=== PATIENT | female | born 1985 | race Caucasian/White ===

== ENCOUNTER 2021-03-22 08:52 | Emergency (ER) | payer BC ==
[2021-03-22] MEDS ORDERED: Amoxicillin/Clavulanate K 875-125 MG Tab PO ONE (09:09)
[2021-03-22] MEDS ORDERED: Diphtheria,Pertussis(Acell),Tetanus Vaccine 0.5 ML Syringe IM ONE (09:09)
--- NOTE | 2021-03-22 09:28 | EDM.PDOC ---
ED HPI GENERAL MEDICAL PROBLEM - General Chief Complaint: Bite:Animal, Insect Stated Complaint: DOG BITE Time Seen by Provider: 03/22/21 08:56 - History of Present Illness INITIAL COMMENTS - FREE TEXT/NARRATIVE: CHIEF COMPLAINT(S): Dog bite HISTORY OF PRESENT ILLNESS: This is a 34-year-old woman without any significant past medical history who comes to the emergency department with a chief complaint of dog bite. The patient states that prior to arrival her dogs were fighting at home and she got in between them and her dog accidentally bit her left hand. She states that she has not had a tetanus in the last 5 years. She states that she is experiencing some mild pain to her left hand where the puncture wounds are but denies any bleeding or any other injury. She describes her pain as achy rated 2-3 out of 10. She denies any numbness, tingling, or weakness. She states that her pets are up-to-date on their vaccinations. She denies any other symptoms. REVIEW OF SYSTEMS: Cardiovascular: Denies chest pain Respiratory: Denies shortness of breath Skin: Positive for dog bite to left hand MSK: Denies joint pain Neurological: Denies numbness, tingling, weakness PAST MEDICAL HISTORY: As per history of present illness and as reviewed below otherwise noncontributory. SURGICAL HISTORY: As per history of present illness and as reviewed below otherwise noncontributory. SOCIAL HISTORY: As per history of present illness and as reviewed below otherwise noncontributory. FAMILY HISTORY: As per history of present illness and as reviewed below otherwise noncontributory. EXAMINATION OF ORGAN SYSTEMS/BODY AREAS: Constitutional: Blood pressure is 105/71, heart rate 89, respiratory rate 18 with an oxygen saturation 98% on room air. Temperature 36.4 General: Overall well-appearing woman who is in no acute distress Psychiatric: Appropriate mood and affect. Eyes: No scleral icterus or conjunctival erythema Cardiovascular: Regular, rate, and rhythm. No gallops, murmurs, or rubs. Bilateral upper extremity pulses symmetric and intact. Respiratory: Lungs clear to auscultation bilaterally. No wheezes, rales, or rhonchi. Musculoskeletal: The patient has full range of motion of all of her digits on her left hand, full range of motion at the left wrist. No deformity noted. Skin: There is a puncture wound on the dorsal aspect of the left hand and the palmar aspect of the left hand without any active bleeding, tendon exposure or muscle exposure. Neurological: Alert, GCS 15 distal sensation is intact. Strength 5 out of 5 in bilateral upper extremities MEDICAL DECISION MAKING AND COURSE IN THE ED WITH INTERPRETATION/REVIEW OF DIAGNOSTIC STUDIES: This is a 35-year-old woman without any significant past medical history who comes to the emergency department with dog bite from a vaccinated animal. At this time we will update the patient's tetanus shot. We will clean out the wound. At this time I do not believe any labs or imaging are indicated. We will provide the patient with Augmentin by mouth and send a prescription for Augmentin. The patient was given strict return precautions. The patient was amenable to discharge at this time and had no further questions. DISPOSITION: The patient was discharged home in stable condition. The patient will follow up with PCP as needed CONDITION: Fair PROCEDURES: None FINAL IMPRESSION(S)/DIAGNOSES: 1. Acute left hand dog bite puncture wound Alonso Reddy M.D. left hand Pain Score (Numeric/FACES): 3 - Related Data Allergies Allergy/AdvReac Type Severity Reaction Status Date / Time leuprolide acetate Allergy Rash Verified 03/12/14 08:28 [From Lupron] Home Meds: Home Meds Acetaminophen [Tylenol] 325 mg PO Q4H PRN 03/12/14 [History] Amoxicillin/Potassium Clav [Augmentin 875-125 Tablet] 1 each PO BID #14 tablet 03/22/21 [Rx] Omeprazole 20 mg PO 03/22/21 [History] Pnv No.95/Ferrous Fum/Folic AC [ Caplet] 1 each PO DAILY 03/22/21 [History] Past Medical History HEENT History: Reports: None Cardiovascular History: Reports: None Respiratory History: Reports: None Gastrointestinal History: Reports: Other (See Below) Other Gastrointestinal History: colonic enteritis Genitourinary History: Reports: None NURSERYPERSON History: Reports: Endometriosis, , Other (See Below) Other NURSERYPERSON History: Musculoskeletal History: Reports: Other (See Below) Other Musculoskeletal History: Scoliosis Neurological History: Reports: None Psychiatric History: Reports: None Endocrine/Metabolic History: Reports: None Hematologic History: Reports: None Immunologic History: Reports: None Oncologic (Cancer) History: Reports: None Dermatologic History: Reports: None - Infectious Disease History Infectious Disease History: Reports: None - Past Surgical History Head Surgeries/Procedures: Reports: None HEENT Surgical History: Reports: Oral Surgery, Other (See Below) GI Surgical History: Reports: Cholecystectomy, Other (See Below) Other GI Surgeries/Procedures: partial colectomy Social & Family History - Family History Family Medical History: No Pertinent Family History - Tobacco Use Tobacco Use Status *Q: Current Every Day Tobacco User Years of Tobacco use: 15 Packs/Tins Daily: 0.5 - Caffeine Use Caffeine Use: Reports: Soda - Recreational Drug Use Recreational Drug Use: No ED ROS GENERAL - Review of Systems Review Of Systems: See Below ED EXAM, ANIMAL BITE - Physical Exam Exam: See Below Course - Vital Signs Last Recorded V/S: Last Vital Signs Temp 36.4 C 03/22/21 09:09 Pulse 89 03/22/21 09:09 Resp 18 03/22/21 09:09 BP 105/71 03/22/21 09:09 Pulse Ox 98 03/22/21 09:09 - Orders/Labs/Meds Meds: Medications Discontinued Medications Generic Name Dose Route Start Last Admin Trade Name Freq PRN Reason Stop Dose Admin Amoxicillin/Clavulanate Potassium 1 tab 03/22/21 09:09 03/22/21 09:21 Amoxicillin/Clavulanate K 875-125 Mg Tab PO 03/22/21 09:10 1 tab ONETIME ONE Administration Diphtheria/Tetanus/Acell Pertussis 0.5 ml 03/22/21 09:09 03/22/21 09:21 Diphtheria,Pertussis(Acell),Tetanus Vaccine 0.5 Ml Syringe IM 03/22/21 09:10 0.5 ml .ONCE ONE Administration Departure - Departure Time of Disposition: 09:26 Disposition: Home, Self-Care 01 Condition: Fair Clinical Impression: Dog bite - Discharge Information *PRESCRIPTION DRUG MONITORING PROGRAM REVIEWED*: No *COPY OF PRESCRIPTION DRUG MONITORING REPORT IN PATIENT ROBERT: No Prescriptions: Amoxicillin/Potassium Clav [Augmentin 875-125 Tablet] 1 each PO BID #14 tablet Instructions: Animal Bite, Adult, [id number] Referrals: Jennifer Panda MD [Primary Care Provider] - Forms: ED Department Discharge Additional Instructions: You were evaluated today on an emergent basis. We did update your tetanus today. I do recommend the use of Tylenol 500 mg to 1000 mg every 6 hours for the next 2 days and then as needed after this. Please keep your hand elevated to reduce swelling. Use ice to the area 20 minutes 4 times a day. Please use soap and water to clean your hand. Please return if you have any new or worsening symptoms such as pus drainage, redness, or worsening pain. Please follow-up with your primary care physician within 7 days. [facility] - Primary Care [address], [place] [address] [facility] [address] [place] [address] The patient is informed of any results of their evaluation and diagnostic workup and all questions are answered. They are given discharge instructions and return precautions. The patient is stable for discharge. The patient states they understand and agree with the plan and that they will return if their symptoms get worse or if they have any new concerns. The following information is given to patients seen in the emergency department who are being discharged to home. This information is to outline your options for follow-up care. We provide all patients seen in our emergency department with a follow-up referral. The need for follow-up, as well as the timing and circumstances, are variable depending upon the specifics of your emergency department visit. If you don't have a primary care physician on staff, we will provide you with a referral. We always advise you to contact your personal physician following an emergency department visit to inform them of the circumstance of the visit and for follow-up with them and/or the need for any referrals to a consulting specialist. The emergency department will also refer you to a specialist when appropriate. This referral assures that you have the opportunity for follow-up care with a specialist. All of these measure are taken in an effort to provide you with optimal care, which includes your follow-up. Under all circumstances we always encourage you to contact your private physician who remains a resource for coordinating your care. When calling for follow-up care, please make the office aware that this follow-up is from your recent emergency room visit. If for any reason you are refused follow-up, please contact the [facility] Emergency Department at and asked to speak to the emergency department charge nurse. Sepsis Event Note (ED) - Evaluation Sepsis Screening Result: No Definite Risk
== END 2021-03-22 09:32 | disposition home or self-care (01) ==
LOC: MW.ED 08:52
DX: S61.452A Open bite of left hand, initial encounter (principal); Z72.0 Tobacco use; Z23 Encounter for immunization; Z88.8 Allergy status to other drugs, medicaments and biological substances; Z79.899 Other long term (current) drug therapy; W54.0XXA Bitten by dog, initial encounter
CPT/HCPCS: 90471; 90715; 99283; A9270; 99282

== ENCOUNTER 2021-06-23 12:06 | Inpatient (IN) | payer BC ==
--- NOTE | 2021-06-23 13:36 | PCM.LDHP ---
L&D History of Present Illness - General Date of Service: 06/23/21 Admit Problem/Dx: Patient Status Order with Admit Dx/Problem 06/23/21 12:11 Patient Status [ADT] Routine Admission Diagnosis/Problem Admission Diagnosis/Problem Source of Information: Patient History Limitations: Reports: No Limitations - History of Present Illness Improves with: Reports: None Worsens with: Reports: None Associated Symptoms: Reports: N - Related Data Allergies/Adverse Reactions: Allergies Allergy/AdvReac Type Severity Reaction Status Date / Time leuprolide acetate Allergy Rash Verified 03/12/14 08:28 [From Lupron] Home Medications: Home Meds Acetaminophen [Tylenol] 325 mg PO Q4H PRN 03/12/14 [History] Amoxicillin/Potassium Clav [Augmentin 875-125 Tablet] 1 each PO BID #14 tablet 03/22/21 [Rx] Omeprazole 20 mg PO 03/22/21 [History] Pnv No.95/Ferrous Fum/Folic AC [ Caplet] 1 each PO DAILY 03/22/21 [History] Past Medical History HEENT History: Reports: None Cardiovascular History: Reports: None Respiratory History: Reports: None Gastrointestinal History: Reports: Other (See Below) Other Gastrointestinal History: colonic enteritis Genitourinary History: Reports: None EVENT PLANNER History: Reports: Endometriosis, , Other (See Below) Other OB/BYN History: Musculoskeletal History: Reports: Other (See Below) Other Musculoskeletal History: Scoliosis Neurological History: Reports: None Psychiatric History: Reports: None Endocrine/Metabolic History: Reports: None Hematologic History: Reports: None Immunologic History: Reports: None Oncologic (Cancer) History: Reports: None Dermatologic History: Reports: None - Infectious Disease History Infectious Disease History: Reports: None - Past Surgical History Head Surgeries/Procedures: Reports: None HEENT Surgical History: Reports: Oral Surgery, Other (See Below) GI Surgical History: Reports: Cholecystectomy, Other (See Below) Other GI Surgeries/Procedures: partial colectomy Social & Family History - Family History Family Medical History: No Pertinent Family History - Caffeine Use Caffeine Use: Reports: Soda H&P Review of Systems - Review of Systems: Review Of Systems: See Below General: Reports: No Symptoms HEENT: Reports: No Symptoms Pulmonary: Reports: No Symptoms Cardiovascular: Reports: No Symptoms Gastrointestinal: Reports: No Symptoms Genitourinary: Reports: No Symptoms Musculoskeletal: Reports: No Symptoms Skin: Reports: No Symptoms Psychiatric: Reports: No Symptoms Neurological: Reports: No Symptoms Hematologic/Lymphatic: Reports: No Symptoms Immunologic: Reports: No Symptoms L&D Exam - Exam Exam: See Below - Vital Signs Weight: 76.657 kg - OB Specific Fundal Height In cm: 38 Contraction Intensity: Mild to Moderate Movement: Active Heart Tones: Present Presentation: Vertex - Joyce Score Joyce Score Cervix Position: Midposition Joyce Score Consistency: Soft Joyce Score Effacement: 51-70% Joyce Score Dilation: 3-4 cm Joyce Score Infant's Station: -3 Joyce Score Total: 7 - Exam General: Alert, Oriented HEENT: PERRLA, Conjunctiva Clear, EACs Clear, EOMI, Hearing Intact, Mucosa Moist & [place], Nares Patent, Normal Nasal Septum, Posterior Pharynx Clear, TMs Clear Neck: Supple, Trachea Midline Lungs: Clear to Auscultation, Normal Respiratory Effort Cardiovascular: Regular Rate, Regular Rhythm GI/Abdominal Exam: Normal Bowel Sounds, Soft, Non-Tender, No Organomegaly, No Distention, No Abnormal Bruit, No Mass, Pelvis Stable Rectal Exam: Normal Exam, Normal Rectal Tone Genitourinary: Normal external exam, Normal bimanual exam, Normal speculum exam Back Exam: Normal Inspection, Full Range of Motion Extremities: Normal Inspection, Normal Range of Motion, Non-Tender, No Pedal Edema, Normal Capillary Refill Skin: Warm, Dry, Intact Neurological: Cranial Nerves Intact, Reflexes Equal Bilateral Psychiatric: Alert, Normal Affect, Normal Mood - Patient Data Lab Results Last 24 hrs: Laboratory Results - last 24 hr 06/23/21 Range/Units 12:48 Membrane Rupture POSITIVE Problem List Initiated/Reviewed/Updated: Yes Orders Last 24hrs: Active Orders 24 hr Category Date Time Status Patient Status [ADT] Routine ADT 06/23/21 12:11 Active Non Stress Test [RC] PER UNIT ROUTINE Care 06/23/21 12:11 Active Up ad Hilda [RC] ASDIRECTED Care 06/23/21 12:11 Active Vaginal Exam [RC] Click to Edit Care 06/23/21 12:11 Active Vital Signs [RC] PER UNIT ROUTINE Care 06/23/21 12:11 Active Resuscitation Status Routine Resus Stat 06/23/21 12:11 Ordered Assessment/Plan Comment:: 49+ week para 2001 one vaginal and one section for breech presentation the patient is consented for and she is a candidate for it. We have and mild to moderate contraction she is leaking fluid with a positive amnio sure. Finish rupturing her membranes and she is a 3 cm 60-70 vertex and -3.
[2021-06-23] MEDS ORDERED: Carboprost Tromethamine 250 MCG/1 ML Amp IM PRN (14:12)
[2021-06-23] MEDS ORDERED: Sodium Chloride 0.9% 10 ML Syringe FLUSH PRN (14:12)
[2021-06-23] MEDS ORDERED: Misoprostol 200 MCG Tab PO PRN (14:12)
[2021-06-23] MEDS ORDERED: Methylergonovine 0.2 MG/1 ML Amp IM PRN (14:12)
[2021-06-23] MEDS ORDERED: Lidocaine 1% 50 ML MDV INJECT PRN (14:12)
[2021-06-23] MEDS ORDERED: Sodium Chloride 0.9% 10 ML SDV IV PRN (14:12)
[2021-06-23] MEDS ORDERED: Nalbuphine 10 MG/1 ML Vial IVPUSH PRN (14:12)
[2021-06-23] MEDS ORDERED: Water For Irrigation,Sterile 1,000 ML Container IRR PRN (14:12)
[2021-06-23] MEDS ORDERED: Ondansetron 4 MG/2 ML SDV IVPUSH PRN (14:12)
[2021-06-23] MEDS ORDERED: Tranexamic Acid 1,000 MG in Sodium Chloride 0.9% 100 ML IV PRN (14:12)
[2021-06-23] MEDS ORDERED: Sodium Chloride 0.9% 2.5 ML Syringe FLUSH PRN (14:12)
[2021-06-23] MEDS ORDERED: Oxytocin/0.9 % Sodium Chloride 30 UNIT/500 ML BAG IV SCH (14:15)
[2021-06-23] MEDS ORDERED: Lactated Ringers 1,000 ML IV SCH (14:15)
[2021-06-23] MEDS ORDERED: Ibuprofen 400 MG Tab PO PRN (21:10)
[2021-06-23] MEDS ORDERED: Benzocaine/Menthol 20%-0.5% Spray 78 GM Cannister TOP PRN (21:10)
[2021-06-23] MEDS ORDERED: oxyCODONE 5 MG Tab PO PRN (21:10)
[2021-06-23] MEDS ORDERED: Witch Hazel Medicated Pads 40/Jar TOP PRN (21:10)
[2021-06-23] MEDS ORDERED: Bisacodyl 10 MG Supp RECTAL PRN (21:10)
[2021-06-23] MEDS ORDERED: Docusate Sodium 100 MG Cap PO PRN (21:10)
[2021-06-23] MEDS ORDERED: Acetaminophen 500 MG Tab PO PRN (21:10)
[2021-06-23] MEDS ORDERED: Lanolin 100% Cream 7 GM Tube TOP PRN (21:10)
[2021-06-24] MEDS: Ibuprofen 800 MG Tab PO PRN ×2 (04:23→13:35)
[2021-06-24] MEDS: Acetaminophen 500 MG Tab PO PRN ×3 (04:23→22:33)
--- NOTE | 2021-06-24 10:46 | OR ---
SURGEON: Miguel Solomon MD DATE OF PROCEDURE: 06/23/2021 Ms. Weir is 35 years old. She is para 2-0-0-2. She had 1 vaginal and 1 section for a breech presentation. She is qualified for a in this , and she signed the consent. She was admitted with an early spontaneous rupture of the membrane, leaking membrane, with cramping and mild contraction. At the time of admission, she was 3 to 4 cm with bulging bag of water. I went ahead and finished completing her rupture of the membrane, and we used nipple stimulation to enhance her contraction. The patient had continued to progress. She became 4 to 5 and then her contraction every 3 to 4 minutes and then went from 4 to 5 to 7 to 8 and then complete, and then she was accomplished normal spontaneous vaginal delivery of a male fetus, cried immediately. scores were reported to be 8 and 9. The weight is not available. The placenta delivered spontaneous, complete, and intact. There was no perineal, labial, or vaginal laceration. Estimated blood loss was 300 to 350 mL. heart rate was category I through the entire process of labor. The patient did not have epidural in her labor. She had 1 dose of Nubain. There was no complication in the labor and the delivery process of this patient. PONCHO / EVE /[id number]
[2021-06-25] MEDS: Ibuprofen 800 MG Tab PO PRN (05:01)
--- NOTE | 2021-06-25 08:57 | PCM.DCSUM1 ---
Discharge Summary - Hospital Course Free Text/Narrative:: Anjali is a 35 yo current PPD2 S/P uncomplicated to term NBM. A pos, RI, GBS neg. Patient has no complaints or concerns at this time. Patient is breast pumping and bottle feeding well, resting comfortably in bed with in bassinet. Patient reports she is eating, voiding, ambulating independently and without difficulty. Patient denies any problems or concerns at this time except mild-moderate intermittent uterine cramping relieved with Tylenol and Ibuprofen. Patient reports moderate vaginal bleeding with no clots. Patient verbalizes her readiness to be discharged home today. Diagnosis: Stroke: No - Discharge Data Discharge Date: 06/25/21 Discharge Disposition: Home, Self-Care 01 Condition: Good - Referral to Home Health Primary Care Physician: Miguel Solomon MD - Discharge Diagnosis/Problem(s) (1) (vaginal after ) SNOMED Code(s): 695154510 ICD Code: O34.219 - MATERNAL CARE FOR UNSP TYPE SCAR FROM PREVIOUS DEL Status: Acute Priority: High Current Visit: Yes (2) Lactating mother SNOMED Code(s): 464825534, 077302543 ICD Code: Z39.1 - ENCOUNTER FOR CARE AND EXAMINATION OF LACTATING MOTHER Status: Acute Priority: High Current Visit: Yes - Patient Instructions Diet: Usual Diet as Tolerated, Regular Diet as Tolerated, Drink 8-10+ Glasses/Day Activity: As Tolerated, No Strenuous Activities, Rest and Relax Today Driving: May Drive Today Showering/Bathing: May Shower Showering/Bathing, Other: May sitz bathe for perineal comfort Notify Provider of: Fever, Increased Pain, Swelling and Redness, Drainage, Nausea and/or Vomiting - Discharge Plan *PRESCRIPTION DRUG MONITORING PROGRAM REVIEWED*: No *COPY OF PRESCRIPTION DRUG MONITORING REPORT IN PATIENT ROBERT: No Prescriptions/Med Rec: Ibuprofen [Motrin] 800 mg PO Q8H PRN #30 tablet PRN Reason: Pain (Mild 1-3) Home Medications: Home Meds Omeprazole 20 mg PO 03/22/21 [History] Pnv No.95/Ferrous Fum/Folic AC [ Caplet] 1 each PO DAILY 03/22/21 [History] Ibuprofen [Motrin] 800 mg PO Q8H PRN #30 tablet 06/25/21 [Rx] - Discharge Summary/Plan Comment DC Time >30 min.: Yes - General Info Date of Service: 06/25/21 Admission Dx/Problem (Free Text: Patient Status Order with Admit Dx/Problem 06/23/21 12:11 Patient Status [ADT] Routine Admission Diagnosis/Problem Admission Diagnosis/Problem Subjective Update: Anjali is a 35 yo current PPD2 S/P uncomplicated to term NBM. A pos, RI, GBS neg. Patient has no complaints or concerns at this time. Patient is breast pumping and bottle feeding well, resting comfortably in bed with in bassinet. Patient reports she is eating, voiding, ambulating independently and without difficulty. Patient denies any problems or concerns at this time except mild-moderate intermittent uterine cramping relieved with Tylenol and Ibuprofen. Patient reports moderate vaginal bleeding with no clots. Patient ve rbalizes her readiness to be discharged home today. Functional Status: Reports: Pain Controlled, Tolerating Diet, Ambulating, Urinating, New Symptoms - Review of Systems General: Reports: No Symptoms HEENT: Reports: No Symptoms Pulmonary: Reports: No Symptoms Cardiovascular: Reports: No Symptoms Gastrointestinal: Reports: No Symptoms Genitourinary: Reports: No Symptoms Musculoskeletal: Reports: No Symptoms Skin: Reports: No Symptoms Neurological: Reports: No Symptoms Psychiatric: Reports: No Symptoms - Patient Data Vitals - Most Recent: Last Vital Signs Temp 97.1 F 06/25/21 08:00 Pulse 70 06/25/21 08:00 Resp 18 06/25/21 08:00 BP 110/67 06/25/21 08:00 Pulse Ox 95 06/25/21 08:00 Weight - Most Recent: 169 lb Med Orders - Current: Current Medications Acetaminophen (Acetaminophen 500 Mg Tab) 500 mg PO Q4H PRN PRN Reason: Pain (mild 1-3) Acetaminophen (Acetaminophen 500 Mg Tab) 1,000 mg PO Q4H PRN PRN Reason: Pain (mild 1-3) Last Admin: 06/24/21 22:33 Dose: 1,000 mg Documented by: Benzocaine/Menthol (Benzocaine/Menthol 20%-0.5% Jamieson 78 Gm Cannister) 78 gm TOP ASDIRECTED PRN PRN Reason: Perineal Comfort Measure Last Admin: 06/24/21 00:03 Dose: 78 gm Documented by: Bisacodyl (Bisacodyl 10 Mg Supp) 10 mg RECTAL ONETIME PRN PRN Reason: Constipation Carboprost Tromethamine (Carboprost Tromethamine 250 Mcg/1 Ml Amp) 250 mcg IM ASDIRECTED PRN PRN Reason: Post Hemorrhage Docusate Sodium (Docusate Sodium 100 Mg Cap) 100 mg PO Q12H PRN PRN Reason: Constipation Emollient Ointment (Lanolin 100% Cream 7 Gm Tube) 0 gm TOP ASDIRECTED PRN PRN Reason: Sore Nipples Lactated Ringer's (Ringers, Lactated) 1,000 mls @ 150 mls/hr IV ASDIRECTED [facility] Last Infusion: 06/23/21 20:13 Dose: 150 mls/hr Documented by: Oxytocin/Sodium Chloride (Oxytocin 30 Unit/500 Ml-Ns) 30 unit in 500 mls @ 999 mls/hr IV TITRATE [facility] Last Admin: 06/23/21 21:41 Dose: 500 mls/hr Documented by: Tranexamic Acid 1,000 mg/ (Sodium Chloride) 110 mls @ 660 mls/hr IV ONETIME PRN PRN Reason: Bleeding Ibuprofen (Ibuprofen 400 Mg Tab) 400 mg PO Q4H PRN PRN Reason: Pain (mild 1-3) Ibuprofen (Ibuprofen 800 Mg Tab) 800 mg PO Q6H PRN PRN Reason: Pain (mild 1-3) Last Admin: 06/25/21 05:01 Dose: 800 mg Documented by: Lidocaine HCl (Lidocaine 1% 50 Ml Mdv) 50 ml INJECT ONETIME PRN PRN Reason: Laceration repair Methylergonovine Maleate (Methylergonovine 0.2 Mg/1 Ml Amp) 0.2 mg IM ASDIRECTED PRN PRN Reason: Post Hemorrhage Misoprostol (Misoprostol 200 Mcg Tab) 200 mcg PO ONETIME PRN PRN Reason: Post Hemorrhage Nalbuphine HCl (Nalbuphine 10 Mg/1 Ml Vial) 10 mg IVPUSH Q1H PRN PRN Reason: Pain (severe 7-10) Last Admin: 06/23/21 19:42 Dose: 10 mg Documented by: Ondansetron HCl (Ondansetron 4 Mg/2 Ml Sdv) 4 mg IVPUSH Q4H PRN PRN Reason: Nausea/Vomiting Oxycodone HCl (Oxycodone 5 Mg Tab) 5 mg PO Q2H PRN PRN Reason: Pain (severe 7-10) Sodium Chloride (Sodium Chloride 0.9% 10 Ml Syringe) 10 ml FLUSH ASDIRECTED PRN PRN Reason: Keep Vein Open Sodium Chloride (Sodium Chloride 0.9% 2.5 Ml Syringe) 2.5 ml FLUSH ASDIRECTED PRN PRN Reason: Keep Vein Open Sodium Chloride (Sodium Chloride 0.9% 10 Ml Sdv) 10 ml IV ASDIRECTED PRN PRN Reason: IV Use Sterile Water (Water For Irrigation,Sterile 1,000 Ml Container) 1,000 ml IRR ASDIRECTED PRN PRN Reason: delivery Witch Lacey (Witch Lacey Medicated Pads 40/Jar) 1 pad TOP ASDIRECTED PRN PRN Reason: comfort care Last Admin: 06/24/21 00:02 Dose: 1 pad Documented by: - Exam General: Reports: Alert, Oriented, Cooperative, No Acute Distress HEENT: Reports: Pupils Equal, Mucous Membr. Moist/[place] Neck: Reports: Supple Lungs: Reports: Clear to Auscultation, Normal Respiratory Effort Cardiovascular: Reports: Regular Rate, Regular Rhythm GI/Abdominal Exam: Normal Bowel Sounds, Soft, Non-Tender, No Organomegaly, No Distention (Female) Exam: Normal External Exam, Enlarged Uterus ( uterus, firm u-1), Vaginal Bleeding (Moderate rubra lochia, no clots) Rectal (Female) Exam: Deferred Back Exam: Reports: Normal Inspection, Full Range of Motion Extremities: Normal Inspection, Normal Range of Motion, Non-Tender, No Pedal Edema, Normal Capillary Refill Skin: Reports: Warm, Dry, Intact Neurological: Reports: No New Focal Deficit Psy/Mental Status: Reports: Alert, Normal Affect, Normal Mood
== END 2021-06-25 12:05 | disposition home or self-care (01) | DRG 560 ==
LOC: MW.OBCHECK 12:06 → MW.OB 12:10 → MW.OBCHECK 21:10 → MW.OB 06-24 00:18
PROVIDERS: ADMIT Obstetrics & Gynecology; ATTEND Obstetrics & Gynecology
PROC: 10E0XZZ Delivery of Products of Conception, External Approach (ICD-10-PCS; principal; 2021-06-23)
DX: O34.211 Maternal care for low transverse scar from previous cesarean delivery (principal); Z3A.39 39 weeks gestation of pregnancy; Z37.0 Single live birth
CPT/HCPCS: 36415; 59025; 59409; 84112; 85014; 85018; 85027; 86592; 86850; 86900; 86901; A9270-GY; J2300; J2590; J7120; U0002

== ENCOUNTER 2023-03-25 04:54 | Inpatient (IN) | payer BC ==
[2023-03-25] MEDS ORDERED: Bisacodyl 10 MG Supp RECTAL PRN (05:38)
[2023-03-25] MEDS ORDERED: Docusate Sodium 100 MG Cap PO PRN (05:38)
[2023-03-25] MEDS ORDERED: Ibuprofen 400 MG Tab PO PRN (05:38)
[2023-03-25] MEDS ORDERED: Acetaminophen 500 MG Tab PO PRN ×2 (05:38)
[2023-03-25] MEDS ORDERED: Lanolin 100% Cream 7 GM Tube TOP PRN (05:38)
[2023-03-25] MEDS ORDERED: Witch Hazel Medicated Pads 40/Jar TOP PRN (05:38)
[2023-03-25] MEDS ORDERED: Benzocaine/Menthol 20%-0.5% Spray 78 GM Cannister TOP PRN (05:38)
[2023-03-25] MEDS ORDERED: Misoprostol 200 MCG Tab PO PRN (05:51)
[2023-03-25] MEDS ORDERED: Lactated Ringers 1,000 ML IV SCH (06:00)
[2023-03-25 06:09] LABS: HEMATOCRIT 38.9 % (36.0-46.0); HEMOGLOBIN 13.5 g/dL (12.0-16.0); MEAN CORPUSCULAR HEMOGLOBIN 29.7 pg (27.0-32.0); MEAN CORPUSCULAR HGB CONC 34.7 g/dL (31.0-37.0); MEAN CORPUSCULAR VOLUME 85.7 fL (80.0-98.0); MEAN PLATELET VOLUME 9.9 fL (7.40-12.00); RED BLOOD CELL COUNT 4.54 M/uL (4.30-5.90); WHITE BLOOD CELL COUNT,WBC 20.19 K/uL (4.0-11.0)
[2023-03-25 06:42] LABS: AMPHETAMINES SCREEN, URINE NEGATIVE (CUTOFF=500); BARBITURATE SCREEN,URINE NEGATIVE (CUTOFF=200); BENZODIAZEPINES SCREEN,URINE NEGATIVE (CUTOFF=150); BUPRENORPHINE SCREEN,URINE NEGATIVE (CUTOFF=10); METHADONE SCREEN, URINE NEGATIVE (CUTOFF=200); METHAMPHETAMINES SCREEN, URINE NEGATIVE (CUTOFF=500); OXYCODONE SCREEN,URINE NEGATIVE (CUT0FF=100); PCP SCREEN,URINE NEGATIVE (CUTOFF=25); PROPOXYPHENE SCREEN,URINE NEGATIVE (CUTOFF=300); THC SCREEN,URINE 20 NG/ML NEGATIVE (CUTOFF=50)
[2023-03-25] MEDS ORDERED: Oxytocin/0.9 % Sodium Chloride 30 UNIT/500 ML BAG IV SCH (07:45)
[2023-03-25] MEDS: Ibuprofen 800 MG Tab PO PRN ×2 (09:41→15:47)
[2023-03-26 05:50] LABS: HEMATOCRIT 33.1 % (36.0-46.0); HEMOGLOBIN 11.4 g/dL (12.0-16.0)
== END 2023-03-26 11:58 | disposition home or self-care (01) | DRG 560 ==
LOC: MW.OBCHECK 04:54 → MW.OB 05:07 → MW.OBCHECK 05:08 → MW.OB 05:09 → OBSVTOIN 05:09
PROVIDERS: ADMIT Obstetrics & Gynecology; ATTEND Obstetrics & Gynecology
PROC: 10E0XZZ Delivery of Products of Conception, External Approach (ICD-10-PCS; principal; 2023-03-25)
DX: O34.219 Maternal care for unspecified type scar from previous cesarean delivery (principal); Z37.0 Single live birth; Z3A.39 39 weeks gestation of pregnancy; Z90.49 Acquired absence of other specified parts of digestive tract; Z88.8 Allergy status to other drugs, medicaments and biological substances
CPT/HCPCS: 36415; 59409; 80305-QW; 85014; 85018; 85027; 86592; 86850; 86900; 86901; A9270-GY; J2590

== ENCOUNTER 2023-11-03 08:56 | Emergency (ER) | payer BC ==
[2023-11-03 12:19] LABS: CANDIDA DNA PROBE NEGATIVE (NEGATIVE); GARDNERELLA DNA PROBE NEGATIVE (NEGATIVE); TRICHOMONAS DNA PROBE NEGATIVE (NEGATIVE)
== END 2023-11-03 12:49 | disposition home or self-care (01) ==
LOC: MW.ED 08:56
DX: N99.820 Postprocedural hemorrhage of a genitourinary system organ or structure following a genitourinary system procedure (principal); Z88.8 Allergy status to other drugs, medicaments and biological substances
CPT/HCPCS: 87480; 87510; 87660; 99283; 99284

== ENCOUNTER 2024-10-11 12:21 | Day surgery (SDC) | payer BC ==
[2024-10-11] MEDS: Lactated Ringers 1,000 ML IV SCH (12:42)
[2024-10-11] MEDS ORDERED: Lidocaine 2% 5 ML SDV ONE (13:13)
[2024-10-11] MEDS ORDERED: propofoL 500 MG/50 ML 50 ML ONE (13:13)
[2024-10-11] MEDS ORDERED: Lactated Ringers 1,000 ML IV SCH (14:00)
== END 2024-10-11 14:15 | disposition home or self-care (01) ==
LOC: MW.SDS 12:21
PROVIDERS: ATTEND Surgery
DX: K58.9 Irritable bowel syndrome, unspecified (principal); Q43.1 Hirschsprung's disease; F17.210 Nicotine dependence, cigarettes, uncomplicated; Z80.0 Family history of malignant neoplasm of digestive organs; Z88.8 Allergy status to other drugs, medicaments and biological substances; Z79.899 Other long term (current) drug therapy
CPT/HCPCS: 45378; J2704; J7120; J3490

== ENCOUNTER 2025-02-16 13:28 | Emergency (ER) | payer BC | END 2025-02-16 15:52 | disposition home or self-care (01) | LOC: MW.ED 13:28 | DX: S83.92XA Sprain of unspecified site of left knee, initial encounter (principal); S83.91XA Sprain of unspecified site of right knee, initial encounter; F17.210 Nicotine dependence, cigarettes, uncomplicated; Z86.16 Personal history of COVID-19; Z90.49 Acquired absence of other specified parts of digestive tract; Z90.710 Acquired absence of both cervix and uterus; Z79.899 Other long term (current) drug therapy; Z88.8 Allergy status to other drugs, medicaments and biological substances; Z75.8 Other problems related to medical facilities and other health care; W19.XXXA Unspecified fall, initial encounter; Y93.69 Activity, other involving other sports and athletics played as a team or group | CPT/HCPCS: 735622650; 73562-50; 99283 ==